=== PATIENT | male | born 1950 | race Caucasian/White ===

== ENCOUNTER 2019-07-17 20:23 | Emergency (ER) | payer MEDICARE, SELFPAY ==
--- NOTE | ~2019-07-17 | CT_ITS ---
EXAMINATION: CT abdomen pelvis w con INDICATION: Abdominal and right flank pain TECHNIQUE: Computed tomographic images of the abdomen and pelvis were obtained after the administrati on of 100 cc of Omnipaque 350 intravenous contrast. The dose-length product (DLP) was 1254.58 mGy-cm. Automated exposure control and iterative reconstruction technique were employed. COMPARISON: None available FINDINGS: There is a stable nodule of the right middle lobe with laminated calcification, consistent with old granulomatous disease. There is moderate emphysema of the visualized lung bases. The heart s ize is normal. Cysts of the liver measure up to 8 mm in the left hepatic lobe. There is a small slidi ng hiatal hernia. The spleen, pancreas, gallbladder, and adrenal glands are normal. The kidneys are u nremarkable. Subtle right periureteral fat stranding is noted. There is a 3 mm stone in the urinary b ladder. The appendix is normal. No pathologically enlarged abdominal or pelvic lymph nodes are identi fied. There is moderate lumbar spondylosis. IMPRESSION: 1. 3 mm stone in the urinary bladder and subtle right periureteral fat stranding. Combination of find ings would support passage of a right-sided stone accounting for patient's right flank pain. Reviewed, dictated and finalized at location A. IMPRESSION: 1. 3 mm stone in the urinary bladder and subtle right periureteral fat strandin g. Combination of findings would support passage of a right-sided stone account ing for patient's right flank pain.
[2019-07-17 20:24] VITALS: PULSE 68; RESP 18; TEMP 36; O2SAT 95
--- NOTE | 2019-07-17 20:36 | ED.ABDPAIN ---
HPI - Abdominal Pain General Chief Complaint: Urogenital-Male Stated Complaint: flank pain Time Seen by Provider: 07/17/19 20:28 Source: RN notes reviewed History of Present Illness HPI narrative: Patient presents emergency department from home for right-sided abdominal pain. Patient states pain began 2 hours ago. Pain is located in the right lower abdomen and radiates into the right flank described as sharp and stabbing. Associated with nausea and vomiting. Patient states he has had a previous kidney stone and feels like previous kidney stones. Denies any fevers or chills chest pain shortness of breath diarrhea or any other symptoms. States he is taking no previous pain medication Related Data Home Medications Medication Instructions Recorded Confirmed aspirin 81 mg PO DAILY 07/17/19 atorvastatin 80 mg PO DAILY 07/17/19 lisinopril 20 mg PO DAILY 07/17/19 metoprolol succinate 25 mg PO DAILY 07/17/19 Allergies Allergy/AdvReac Type Severity Reaction Status Date / Time No Known Allergies Allergy Unverified 07/17/19 20:27 Review of Systems Review of Systems: Narrative: Gen.: Denies fevers or chills ENT: Denies congestion Respiratory: Denies shortness of breath or cough CV: Denies chest pain or palpitations GI: See HPI denies burning, urgency, frequency or hematuria Musculoskeletal: Denies back pain or muscle pain Neuro: Denies numbness, tingling, weakness or focal weakness Skin: Denies rash Except as documented, all other systems reviewed and negative [facility] Past Medical History Medical History (Updated 07/17/19 @ 21:54 by Arron Walters DO) Hypertension Kidney stone Family History Family History (Updated 12/10/16 @ 14:41 by DOCTOR UNKNOWN) Mother Patient's mother is , Onset Age: 81 Social History Social History Smoking status: Current every day smoker Exam Narrative: Exam Narrative: APPEARANCE: No acute distress, nontoxic, resting in bed HEENT: Normocephalic, atraumatic, OMM RESPIRATORY: No respiratory distress, clear to auscultation bilaterally with no rhonchi wheezing or rales CARDIOVASCULAR: RRR s murmur ABDOMINAL: Soft, nondistended, tender palpation right lower quadrant, no tenderness in right upper quadrant, left upper quadrant left lower quadrant, no rebound or guarding, right flank tenderness MUSCULOSKELETAl: Moves all extremities. No clubbing, cyanosis or edema. NEURO: Awake and alert. Following commands, speech normal, no focal deficits SKIN:: Warm, dry. Normal Color PSYCHIATRIC: Normal affect/mood Course Course Emergency Course: Patient states pain is resolved at this time Discussed with patient results of workup and diagnosis. Discussed need for follow-up with primary care, proper use of medication, and reasons to return to the emergency department. Patient understands and agrees to current treatment plan. Did discuss with the patient and his use had blood pressures in the systolics of 180s 190s. 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 as his blood pressures have been running high he denies any complaints of headache chest pain shortness of breath or any other symptoms states he is asymptomatic at this time Vital Signs Vital signs: Vital Signs Temperature 96.8 F L 07/17/19 20:24 Pulse Rate 68 07/17/19 20:24 Respiratory Rate 18 07/17/19 20:24 Pulse Oximetry 95 07/17/19 20:24 Temperature 96.8 F L 07/17/19 20:24 Pulse Rate 68 07/17/19 20:24 Respiratory Rate 18 07/17/19 20:24 Pulse Oximetry 95 07/17/19 20:24 MDM - Abdominal Pain Lab Data Result diagrams: 07/17/19 20:37 07/17/19 20:37 Labs: Lab Results 07/17/19 07/17/19 07/17/19 Range/Units 20:37 20:37 21:37 WBC 8.7 (4.5-10.0) K/mm3 RBC 5.50 (4.6-6.20) M/mm3 Hgb 17.4 (14.0-18.0) g/dL Hct 50.2
[2019-07-17 20:41] LABS: Basophils Absolute Auto 0.1 K/mm3 (0.0-0.1); Basophils Percent Auto 0.6 % (0.2-1.2); Eosinophils Absolute Auto 0.2 K/mm3 (0-0.3); Eosinophils Percent Auto 2.4 % (0-4.4); Hematocrit 50.2 % (42.0-52.0); Hemoglobin 17.4 g/dL (14.0-18.0); Immature Granulocyte Absolute 0.02 K/mm3 (0.00-0.031); Immature Granulocyte Percent A 0.2 % (0-0.5); Lymphocytes Absolute Auto 2.93 K/mm3 (0.9-3.2); Lymphocytes Percent Auto 33.8 % (18.3-44.2); Mean Corpuscular HGB Conc 34.7 g/dl (32-36); Mean Corpuscular Hemoglobin 31.6 pg (26-34); Mean Corpuscular Volume 91.3 fl (80-100); Mean Platelet Volume 9.4 fl (7.4-10.4); Monocytes Absolute Auto 0.9 K/mm3 (0.1-0.6); Monocytes Percent Auto 9.9 % (2.6-8.5); Neutrophils Absolute Auto 4.6 K/mm3 (1.3-6.7); Neutrophils Percent Auto 53.1 % (45.5-73.1); Platelet Count Result 242 k/mm3 (150-375); Red Cell Distribution Width 11.9 % (11.5-14.5); White Blood Count 8.7 K/mm3 (4.5-10.0)
[2019-07-17] MEDS: ONDANSETRON INJ 4 MG/2 ML VIAL IV PUSH (20:41)
[2019-07-17] MEDS: SODIUM CHLORIDE 0.9% IV 1,000 ML 999 ML IV CONT (20:41)
[2019-07-17 20:55] LABS: Alanine Aminotransferase 24 U/L (4-50); Albumin Level 4.5 g/dL (3.5-5.1); Alkaline Phosphatase 107 U/L (38-126); Aspartate Amino Transferase 29 U/L (17-59); Bilirubin,Total 0.4 mg/dL (0.2-1.3); Blood Urea Nitrogen 15 mg/dL (9-20); Calcium 9.3 mg/dL (8.4-10.2); Carbon Dioxide 33 mmol/L (22-30); Chloride 101 mmol/L (98-107); Estimated CRCL calculation 85 ml/min; Estimated Glomerular Filt Rate > 60; Glucose 125 mg/dL (75-110); Potassium 3.6 mmol/L (3.4-5.0); Sodium 139 mmol/L (137-145)
[2019-07-17 21:46] LABS: Add Urine Microscopic? YES; Appearance Urine Clear (Clear); Bilirubin Urine Negative (Negative); Blood Urine 2+ (Negative); Color Urine Straw (Yellow); Glucose Urine UA Negative (Negative); Ketones Urine Negative (Negative); Leukocyte Esterase Ur Negative LEU/UL (Negative); Nitrate Urine Negative (Negative); Protein Urine Negative (Negative); Urobilinogen Urine Negative mg/dL (<2.0); WBC Urine 0-3 /hpf
[2019-07-17 21:47] LABS: Specific Grav Ur 1.056 (1.001-1.035)
[2019-07-17 21:55] VITALS: BP 192/76; PULSE 60; RESP 18; O2SAT 98
== END 2019-07-17 22:07 | disposition home or self-care (01) ==
PROVIDERS: Emergency Provider Emergency Medicine; PCP Registered Nurse
DX: N20.0 Calculus of kidney (principal); I10 Essential (primary) hypertension; Z87.442 Personal history of urinary calculi; F17.200 Nicotine dependence, unspecified, uncomplicated
CPT/HCPCS: 36415; 74177; 80053; 81001; 85025; 96361; 96374; 96375; 99284; J0131; J2405; J7030; Q9967